=== PATIENT | female | born 1985 | race Caucasian/White ===

== ENCOUNTER 2016-08-09 14:58 | Emergency (ER) | payer OTHER ==
[2016-08-09] MEDS ORDERED: Fluorescein Opthalmic Strip ONE (15:07)
[2016-08-09] MEDS ORDERED: Tetracaine HCl 0.5% Ophth Soln 2 ML Bottle ONE (15:07)
--- NOTE | 2016-08-09 15:37 | ERRECORD ---
[facility] EMERGENCY RECORD HPI EYE COMPLAINT (15:13 RWAG) CHIEF COMPLAINT: Patient presents for evaluation of foreign body sensation, to the right eye. HISTORIAN: History provided by patient. MECHANISM OF INJURY: Unknown. LOCATION: Symptoms are localized, most severe in the right eye. QUALITY: Unable to describe the quality of the pain. SEVERITY: Maximum severity of symptoms mild, Currently symptoms are mild, Maximum severity of pain rated as 6/10, Current severity of pain rated as 6/10. TIME COURSE: Patient unable to describe onset of symptoms, There has been no change in the patient's symptoms over time. ASSOCIATED WITH: No associated symptoms. RELIEVED BY: Patient's condition relieved by nothing. ROS (15:14 RWAG) CONSTITUTIONAL: Negative constitutional review of systems. EYES: Historian reports eye redness, reports tearing. ENT: Negative ears, nose, throat review of systems. CARDIOVASCULAR: Negative cardiovascular review of systems. RESPIRATORY: Negative respiratory review of systems. GI: Negative gastrointestinal review of systems. GENITOURINARY FEMALE: Negative genitourinary review of systems. MUSCULOSKELETAL: Negative musculoskeletal review of systems. SKIN: Negative skin review of systems. NEUROLOGIC: Negative neurologic review of systems. ENDOCRINE: Negative endocrine review of systems. HEMO/LYMPHATIC: Normal hematologic/lymphatic system review. ALLERGIC/IMMUNOLOGIC: Normal allergy/immunologic system review. PSYCHIATRIC: Negative psychiatric review of systems. NOTES: All systems reviewed, negative except as described above. PAST MEDICAL HISTORY (15:06 JPAR) MEDICAL HISTORY: Notes: psoriasis, Flu vaccine not up to date, Tetanus immunization up to date, Pneumococcal vaccine not up to date. FEMALE SURGICAL HISTORY: Surgical history of section. SOCIAL HISTORY: Patient drinks socially, once a month, Patient denies drug use, Patient is a former tobacco user, smoked cigarettes, Tobacco history notes: quit smoking 7 years ago. KNOWN ALLERGIES No Known Drug Allergies CURRENT MEDICATIONS (15:04 JPAR) &a-1R&a+25V*p+0X*n8945M*c202B*c15G*c2P*p-0X&a-25V&a+1R Name: Lily Hendrickson : 1985 F30 MedRec: [id number] AcctNum: [id number] Prepared: Marvin Aug 09, 2016 16:43 by Interface Page 1 of 3 pMD [facility] EMERGENCY RECORD NuvaRing: RING, VAGINAL : Strength - 0.12 mg -0.015 mg/24 hr : VAGINAL Patient Dose: Unknown. VITAL SIGNS (15:02 JPAR) VITAL SIGNS: BP: 161/97, Resp: 14, Temp: 99.3 (Oral), Pain: 6, O2 sat: 97, Time: 08/09/2016 15:02. PHYSICAL EXAM (15:15 RWAG) CONSTITUTIONAL: Vital Signs Reviewed. HEAD: Head exam normal. EYES: Eye exam included findings of eyelids normal to inspection, Pupils equally round and reactive to light, Extraocular muscles intact, Conjunctiva normal, Sclera normal, Fluorescein uptake abnormal, corneal abrasion;small 10;00 o'clock. ENT: ENT exam normal. NECK: Neck exam normal. RESPIRATORY CHEST: Respiratory and chest exam normal. CARDIOVASCULAR: Cardiovascular assessment normal. ABDOMEN FEMALE: Abdominal exam normal. BACK: Back exam normal. UPPER EXTREMITY: Upper extremity exam normal. LOWER EXTREMITY: Lower extremity exam normal. NEURO: Neuro exam normal. SKIN: Skin exam normal. LYMPHATIC: Lymphatic exam normal. PSYCHIATRIC: Psychiatric exam normal. PROBLEM LIST No recorded problems DIAGNOSIS (15:13 RWAG) FINAL: PRIMARY: Corneal abrasion. PRESCRIPTION (15:12 RWAG) gentamicin ophthalmic: DROPS : 0.3 % : OPHTHALMIC : Quantity: 2 Unit: gtt Route: OPHTHALMIC Schedule: every 6 hours Dispense: 1 Unit: vial(s) May substitute. Refills: No Refills . NOTES: one bottle No Refills. Ultram: TABLET : 50 mg : ORAL : Quantity: 2 Unit: tab(s) Route: ORAL Schedule: every 6 hours PRN Dispense: 12 Unit: tab(s) May substitute. Refills: No Refills . NOTES: No Refills. DISPOSITION PATIENT: Disposition Type: Discharge, Disposition: *Discharge Home, Disposition Transport: Car, Condition: Improved. (15:13 RWAG) &a-1R&a+25V*p+0X*j9565L*c202B*c15G*c2P*p-0X&a-25V&a+1R Name: Lily Hendrickson : 1985 F30 MedRec: [id number] AcctNum: [id number] Prepared: Marvin Aug 09, 2016 16:43 by Interface Page 2 of 3 pMD [facility] EMERGENCY RECORD Patient left the department. (15:31 SUKI) Boggs: SUKI=PAULINE Zhao, Frankie RWAG=MD Elijah, Felipe &a-1R&a+25V*p+0X*n3697L*c202B*c15G*c2P*p-0X&a-25V&a+1R Name: Lily Hendrickson : 1985 F30 MedRec: [id number] AcctNum: [id number] Prepared: Marvin Aug 09, 2016 16:43 by Interface Page 3 of 3 pMD MTDD
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
== END 2016-08-09 15:22 | disposition home or self-care (01) ==
LOC: NAV ERS 14:58
DX: S05.01XA Injury of conjunctiva and corneal abrasion without foreign body, right eye, initial encounter (principal); Z87.891 Personal history of nicotine dependence; X58.XXXA Exposure to other specified factors, initial encounter
CPT/HCPCS: 99283